=== PATIENT | male | born 1965 | race African-American/Black ===

== ENCOUNTER 2017-05-23 03:04 | Emergency (ER) | payer MEDICAID ==
[2017-05-23 04:02] LABS: URINE MICROSCOPIC INDICATED? YES; URINE SOURCE RANDOM
[2017-05-23 04:06] LABS: % BASOPHILS 0.1 % (0.0-2.0); % EOSINOPHILS 1.4 % (0.0-5.0); % LYMPHOCYTES 27.6 % (20.0-50.0); % MONOCYTES 10.8 % (2.0-10.0); % NEUTROPHILS 60.1 % (40.0-80.0); EOSINOPHILE ABSOLUTE 0.1 Th/cmm (0.1-0.4); HEMATOCRIT 37.6 % (41.0-60); HEMOGLOBIN 12.4 gm/dL (12-16); LYMPHOCYTE ABSOLUTE 2.1 Th/cmm (1.5-3.0); MEAN CELL VOLUME 91.6 fl (80-99); MEAN CORPUSCULAR HEMOGLOBIN 30.3 pg (26.0-30.0); MEAN PLATELET VOLUME 7.8 fl; MONOCYTE ABSOLUTE 0.8 Th/cmm (0.3-1.0); NEUTROPHILE ABSOLUTE 4.5 Th/cmm (1.8-8.0); PLATELET COUNT 326 Th/cmm (150-400); RED BLOOD COUNT 4.11 Mil/cmm (4.30-5.70); RED CELL DISTRIBUTION WIDTH 13.1 % (11.5-20.0); WHITE BLOOD COUNT 7.5 Th/cmm (4.8-10.8)
[2017-05-23 04:16] LABS: URINE BILIRUBIN NEGATIVE (NEGATIVE); URINE BLOOD NEGATIVE (NEGATIVE); URINE GLUCOSE (UA) NEGATIVE (NEGATIVE); URINE KETONE NEGATIVE (NEGATIVE); URINE LEUKOCYTE ESTERASE NEGATIVE (NEGATIVE); URINE NITRATE NEGATIVE (NEGATIVE); URINE PROTEIN NEGATIVE (NEGATIVE)
[2017-05-23 04:17] LABS: URINE CLARITY CLEAR (CLEAR); URINE COLOR YELLOW; URINE RBC NONE SEEN /hpf (0-5); URINE WBC 0-2 /hpf (0-5)
[2017-05-23 04:18] LABS: URINE BACTERIA OCCASIONAL /hpf (NONE SEEN); URINE EPITHELIAL CELLS OCCASIONAL /lpf (FEW)
[2017-05-23 04:20] LABS: ALB/GLOB RATIO 1.3 (1.0-1.8); ALBUMIN 3.6 gm/dL (4.2-5.5); ALKALINE PHOSPHATASE 57 U/L (34-104); ANION GAP 9.5 (7.0-16.0); BILIRUBIN,TOTAL 1.2 mg/dL (0.3-1.0); BUN - UREA NITROGEN 19 mg/dL (7-25); CALCIUM SERUM 8.4 mg/dL (8.6-10.3); CARBON DIOXIDE 25.2 mEq/L (21.0-31.0); CHLORIDE 101 mEq/L (98-107); CREATININE - SERUM 0.8 mg/dL (0.7-1.3); GFR AFRICAN-AMERICAN > 60.0 ml/min (>90); GFR NON AFRICAN-AMERICAN > 60.0 ml/min; GLUCOSE 92 mg/dL (70-105); POTASSIUM SERUM 3.7 mEq/L (3.5-5.1); SGOT 20 U/L (13-39); SGPT/ALT 17 U/L (7-52); SODIUM SERUM 132 mEq/L (136-145); TOTAL PROTEIN,SERUM 6.4 gm/dL (6.0-8.3)
[2017-05-23 04:40] LABS: AMPHETAMINE URINE POSITIVE (NEGATIVE); BARBITURATES URINE NEGATIVE (NEGATIVE); COCAINE METABOLITE QUAL URINE NEGATIVE (NEGATIVE); PHENCYCLIDINE (PCP) URINE NEGATIVE (NEGATIVE)
[2017-05-23 04:41] LABS: BENZODIAZEPINES QUAL URINE NEGATIVE (NEGATIVE); CANNABINOID THC POSITIVE (NEGATIVE); METHADONE URINE NEGATIVE (NEGATIVE); METHAMPHETAMINES QUAL URINE POSITIVE (NEGATIVE); OPIATES (MORPHINE) QUAL. URINE NEGATIVE (NEGATIVE); TRICYCLICS (TCA) QUAL. URINE NEGATIVE (NEGATIVE)
--- NOTE | 2017-05-23 05:30 | ED Physician Chart ---
ED Chief Complaint/HPI - Patient Information Date Seen:: 05/23/17 Time Seen:: 03:20 Chief Complaint:: Suicidal ideation History of Present Illness:: 51 [place] [facility] [place] due to suicidal ideation. The patient had schizophrenia and stated that he kept hearing voice of committing suicide for 4 days. The patient wanted to be treated at a psych facility and called 911. He was in a psych facility before and he was not compliant with medication which he did not give a clear answer. Allergies:: Allergies Allergy/AdvReac Type Severity Reaction Status Date / Time haloperidol [From Haldol] Allergy Verified 05/23/17 03:07 risperidone [From Risperdal] Allergy Verified 05/23/17 03:07 ED Review of Systems - Review of Systems General/Constitutional: No fever Skin: No bruising Head: No headache Eyes: No pain Neck: No neck pain Cardio Vascular: No chest pain Pulmonary: No SOB GI: No nausea, No vomiting Musculoskeletal: No bone or joint pain Psychiatric: Prior psych history ED Past Medical History - Past Medical History Past Medical History: No significant medical hx Social History: Smoker, Alcohol, Illicit Drug Use Surgical History: None Psychiatricy History: Schizophrenia Family Medical History - Family Member Mother History Unknown: Yes ED Physical Exam - Physical Examination General/Constitutional: Awake, Alert Head: Atraumatic Eyes: PERRL Skin: No ecchymosis ENMT: Nasal exam nl Neck: No nuchal rigidity Respiratory: Clear to Auscultation Cardio Vascular: RRR, No murmur, gallop, rubs, NL S1 S2 GI: No tenderness/rebounding/guarding Extremities: normal strength in all extremities ED Labs/Radiology/EKG Results - Lab Results Results: Laboratory Tests 05/23/17 05/23/17 05/23/17 03:25 03:25 03:53 WBC 7.5 RBC 4.11 L Hgb 12.4 Hct 37.6 L MCV 91.6 MCH 30.3 H MCHC Differential 33.0 RDW 13.1 Plt Count 326 MPV 7.8 Neutrophils % 60.1 Lymphocytes % 27.6 Monocytes % 10.8 H Eosinophils % 1.4 Basophils % 0.1 Sodium Potassium Chloride Carbon Dioxide Anion Gap BUN Creatinine Est GFR ( Amer) Est GFR (Non-Af Amer) BUN/Creatinine Ratio Glucose Calcium Total Bilirubin AST ALT Alkaline Phosphatase Total Protein Albumin Globulin Albumin/Globulin Ratio TSH Urine Source RANDOM Urine Color YELLOW Urine Clarity CLEAR Urine pH 7.0 Ur Specific [place] 1.015 Urine Protein NEGATIVE Urine Glucose (UA) NEGATIVE Urine Ketones NEGATIVE Urine Blood NEGATIVE Urine Nitrate NEGATIVE Urine Bilirubin NEGATIVE Urine Urobilinogen 1.0 Ur Leukocyte Esterase NEGATIVE Urine RBC NONE SEEN Urine WBC 0-2 Ur Epithelial Cells OCCASIONAL Urine Bacteria OCCASIONAL Urine Opiates Screen NEGATIVE Urine Methadone Screen NEGATIVE Ur Barbiturates Screen NEGATIVE Ur Tricyclics Screen NEGATIVE Ur Phencyclidine Scrn NEGATIVE Amphetamines Screen POSITIVE H U Methamphetamines Scrn POSITIVE H U Benzodiazepines Scrn NEGATIVE U Cocaine Metab Screen NEGATIVE U Cannabinoids Screen POSITIVE H 05/23/17 05/23/17 03:53 03:53 WBC RBC Hgb Hct MCV MCH MCHC Differential RDW Plt Count MPV Neutrophils % Lymphocytes % Monocytes % Eosinophils % Basophils % Sodium 132 L Potassium 3.7 Chloride 101 Carbon Dioxide 25.2 Anion Gap 9.5 BUN 19 Creatinine 0.8 Est GFR ( Amer) > 60.0 Est GFR (Non-Af Amer) > 60.0 BUN/Creatinine Ratio 23.8 Glucose 92 Calcium 8.4 L Total Bilirubin 1.2 H AST 20 ALT 17 Alkaline Phosphatase 57 Total Protein 6.4 Albumin 3.6 L Globulin 2.8 Albumin/Globulin Ratio 1.3 TSH 0.73 Urine Source Urine Color Urine Clarity Urine pH Ur Specific [place] Urine Protein Urine Glucose (UA) Urine Ketones Urine Blood Urine Nitrate Urine Bilirubin Urine Urobilinogen Ur Leukocyte Esterase Urine RBC Urine WBC Ur Epithelial Cells Urine Bacteria Urine Opiates Screen Urine Methadone Screen Ur Barbiturates Screen Ur Tricyclics Screen Ur Phencyclidine Scrn Amphetamines Screen U Methamphetamines Scrn U Benzodiazepines Scrn U Cocaine Metab Screen U Cannabinoids Screen ED Assessment - Assessment General Assessment: Schizophrenia Suicidal ideation Substance abuse Assessment/Comments:: Psych consult by Dr. Cisneros ED Septic Shock - . Is Septic Shock (SBP<90, OR Lactate>4 mmol\L) present?: No ED Discharge Plan - Patient Disposition Instructions: Psychosis
--- NOTE | 2017-05-24 10:14 | Consultation ---
DATE OF CONSULTATION: 05/23/2017 HISTORY OF PRESENT ILLNESS: A 51-year-old -[place] male with history of schizophrenia, depressed, overwhelms, tearful, hopeless, states he is suicidal, intent and plan to cutting himself. The patient ruminative, whispering, appearing suspicious, paranoid, talking about "being a gentleman" and "professionalism." PAST PSYCHIATRIC HISTORY: Suicide attempt in the past. FAMILY HISTORY: Noncontributory. MEDICATIONS: Thorazine, Artane, Klonopin. SOCIAL HISTORY: Born in [place], single, 6 children. "I don't want to talk about it." States he smokes nicotine and marijuana. Homeless. MENTAL STATUS EXAMINATION: Small statured male of stated age. Fair eye contact, whispering. Mood, "not good." Affect tearful. Thought processes were ruminative. The patient alludes to SI, endorsing intent and plan, no HI, alludes to voices, paranoia. Insight and judgment diminished. PROVISIONAL DIAGNOSES: Schizophrenia, major depression, unspecified; substance-induced mood disorder, substance-induced psychosis, marijuana use disorder, unspecified; nicotine use disorder, unspecified. MEDICAL: Please see full H and P. RECOMMENDATIONS AND PLAN: 5150 hold, danger to self, transfer to inpatient psych. [facility]# [id number]
[2017-05-24] MEDS ORDERED: APAP/Codeine 300 mg/30 mg Tab PO STA (16:01)
[2017-05-24] MEDS ORDERED: APAP/Codeine 300 mg/30 mg Tab ONE (16:16)
[2017-05-25] MEDS ORDERED: Trihexyphenidyl HCl 2 mg/5 mL UDC PO SCH (15:00)
--- NOTE | 2017-05-26 02:37 | Progress Notes ---
DATE: 05/25/2017 FOLLOWUP NOTE A 51-year-old male who I saw few days prior. Currently on a 51:50 hold. Still attesting to suicidal thoughts, depressed, wants to be back on his medications. Still attesting to "voices". Sleeping fairly well, getting along fairly well with staff and peers, still somewhat paranoid and hypervigilant. Past psych history noted. He has been to [facility] before that where he wants to go. MENTAL STATUS EXAMINATION: Small statured -[place] male, linear and engaged. to SI, no HI. The patient with "voices" and some paranoia. PROVISIONAL DIAGNOSIS: No change. RECOMMENDATIONS AND PLAN: The patient is agreeable to be transferred to inpatient psych on a basis. We will discontinue 72-hour hold and transfer out voluntarily and will start Thorazine 50 mg twice daily and Artane 2 mg twice daily. JOB# [id number]
== END 2017-05-25 20:05 ==
LOC: ER 03:04
DX: F20.9 Schizophrenia, unspecified (principal); R45.851 Suicidal ideations; F17.200 Nicotine dependence, unspecified, uncomplicated; F31.9 Bipolar disorder, unspecified; Z88.8 Allergy status to other drugs, medicaments and biological substances
CPT/HCPCS: 36415-UA; 80053-TC; 80307; 80320-TC; 81001-TC; 84443-TC; 85025-TC; Q0161; Z7610